=== PATIENT | female | born 2000 | race Two or more races ===

== ENCOUNTER 2019-05-04 11:51 | Emergency (ER) | payer SELFPAY ==
[~2019-05-04] VITALS: Ht 165.1 cm; Wt 64.4 kg
[2019-05-04 11:56] VITALS: Ht 165.1 cm; Wt 64.4 kg
[2019-05-04 12:47] LABS: CALCIUM 8.5 mg/dL (8.5-10.1); CARBON DIOXIDE 26.2 mmol/L (21-32); CHLORIDE SERUM 102 mmol/L (98-107); CREATININE SERUM 0.6 mg/dL (0.6-1.0); GFR1 > 60 mL/min; GLUCOSE SERUM 103 mg/dL (74-106); POTASSIUM SERUM 3.6 mmol/L (3.5-5.1); SODIUM SERUM 138 mmol/L (136-145)
[2019-05-04 12:53] LABS: ALBUMIN 3.9 g/dL (3.4-5.0); ALKALINE PHOSPHATASE 41 U/L (46-116); ALT/SGPT 22 U/L (14-59); AST/SGOT 15 U/L (15-37); BILIRUBIN TOTAL 0.3 mg/dL (0.20-1.00)
[2019-05-04 12:57] LABS: BASOPHIL % 0.3 % (0-2); PLATELET COUNT 207 x10^3mcL (130-400)
[2019-05-04 12:58] LABS: RED CELL DISTRIBUTION WIDTH 15.5 % (11.5-14.5)
[2019-05-04 13:40] VITALS: BP 118/79
== END 2019-05-04 13:40 | disposition home or self-care (01) ==
LOC: ED 11:51
PROVIDERS: Emergency Medicine
DX: R55 Syncope and collapse (principal); R42 Dizziness and giddiness; M53.3 Sacrococcygeal disorders, not elsewhere classified; Z88.0 Allergy status to penicillin
CPT/HCPCS: 36415